=== PATIENT | male | born 1960 | race Caucasian/White ===

== ENCOUNTER 2017-01-29 22:07 | Inpatient (IN) | payer OTHER, MEDICARE ==
[~2017-01-29] VITALS: Ht 182.9 cm; Wt 73.5 kg
[2017-01-29 22:19] VITALS: BP 117/75; PULSE 87; RESP 20; TEMP 98.1; O2SAT 97
--- NOTE | 2017-01-29 22:41 | PD ---
HPI Chief Complaint: Psychiatric Symptoms Time Seen by Provider: 22:33 Travel History International Travel<30 days: No Contact w/Intl Traveler<30days: No Traveled to known affect area: No History of Present Illness HPI 56-year-old male with history of paranoid schizophrenia, here under Carmona act for suicidal ideation. According to the Carmona act the patient was making statements about thinking about how he would commit suicide. He stated he would take pills. He denies any toxic ingestions or self harm today. He has had suicidal ideation in the past, however has never attempted suicide. He denies any physical complaints. [facility] Past Medical History Diminished Hearing: No Schizophrenia: Yes Tetanus Vaccination: Unknown Influenza Vaccination: No Past Surgical History Surgical History: Unable to Obtain Social History Alcohol Use: No Tobacco Use: No Substance Use: No Allergies-Medications (Allergen,Severity, Reaction): Coded Allergies: No Known Allergies (Unverified , 01/29/17) Review of Systems Except as stated in HPI: all other systems reviewed are Neg Physical Exam Narrative GENERAL: Well-developed, well-nourished, awake, sitting comfortably on stretcher , no apparent distress. SKIN: Focused skin assessment warm/dry. No rashes. HEAD: Atraumatic. Normocephalic. EYES: Pupils equal and round. No scleral icterus. No injection or drainage. ENT: Mucous membranes pink and moist. NECK: Trachea midline. No JVD. CARDIOVASCULAR: Regular rate and rhythm. RESPIRATORY: No accessory muscle use. Clear to auscultation. Breath sounds equal bilaterally. GASTROINTESTINAL: Abdomen soft, non-tender, nondistended. MUSCULOSKELETAL: No obvious deformities. No clubbing. No cyanosis. No edema. NEUROLOGICAL: Awake and alert. No obvious cranial nerve deficits. Motor grossly within normal limits. Normal speech. PSYCHIATRIC: Appears paranoid and is slightly agitated. Data Data Last Documented VS Vital Signs Date Time Temp Pulse Resp B/P (MAP) Pulse Ox O2 Delivery O2 Flow Rate FiO2 01/29/17 22:19 98.1 87 20 117/75 (89) 97 Room Air Orders Orders Complete Blood Count With Diff (01/29/17 22:33) Comprehensive Metabolic Panel (01/29/17 22:33) Psych Screen (01/29/17 22:33) Drug Screen, Random Urine (01/29/17 22:33) Alcohol (Ethanol) (01/29/17 22:33) Salicylates (Aspirin) (01/29/17 22:33) Tylenol (Acetaminophen) (01/29/17 22:33) Labs Laboratory Tests Test 01/29/17 22:35 White Blood Count 10.4 TH/MM3 Red Blood Count 5.58 MIL/MM3 Hemoglobin 16.5 GM/DL Hematocrit 48.5 % Mean Corpuscular Volume 86.8 FL Mean Corpuscular Hemoglobin 29.5 PG Mean Corpuscular Hemoglobin Concent 33.9 % Red Cell Distribution Width 13.4 % Platelet Count 452 TH/MM3 Mean Platelet Volume 6.7 FL Neutrophils (%) (Auto) 66.1 % Lymphocytes (%) (Auto) 22.0 % Monocytes (%) (Auto) 9.7 % Eosinophils (%) (Auto) 1.7 % Basophils (%) (Auto) 0.5 % Neutrophils # (Auto) 6.9 TH/MM3 Lymphocytes # (Auto) 2.3 TH/MM3 Monocytes # (Auto) 1.0 TH/MM3 Eosinophils # (Auto) 0.2 TH/MM3 Basophils # (Auto) 0.1 TH/MM3 CBC Comment DIFF FINAL Differential Comment Blood Urea Nitrogen 19 MG/DL Creatinine 1.03 MG/DL Random Glucose 102 MG/DL Total Protein 7.9 GM/DL Albumin 4.2 GM/DL Calcium Level 9.0 MG/DL Alkaline Phosphatase 107 U/L Aspartate Amino Transf (AST/SGOT) 25 U/L Alanine Aminotransferase (ALT/SGPT) 37 U/L Total Bilirubin 0.7 MG/DL Sodium Level 138 MEQ/L Potassium Level 3.7 MEQ/L Chloride Level 105 MEQ/L Carbon Dioxide Level 27.1 MEQ/L Anion Gap 6 MEQ/L Estimat Glomerular Filtration Rate 74 ML/MIN Salicylates Level LESS THAN 1.7 MG/DL Acetaminophen Level LESS THAN 2.0 MCG/ML Ethyl Alcohol Level LESS THAN 3 MG/DL MDM Medical Decision Making Medical Screen Exam Complete: Yes Emergency Medical Condition: Yes Differential Diagnosis Acute psychosis, paranoid schizophrenia, suicidal ideation Narrative Course Vitals and labs reviewed. The patient is medically cleared for psychiatric eval and disposition by them Diagnosis Primary Impression: Paranoid schizophrenia Additional Impression: Suicidal ideation Brady Strong MD Jan 29, 2017 22:41
[2017-01-29 22:50] LABS: AUTOMATED NEUTROPHIL # 6.9 TH/MM3 (1.8-7.7); BASOPHIL # 0.1 TH/MM3 (0-0.2); BASOPHIL % 0.5 % (0.0-2.0); EOSINOPHIL # 0.2 TH/MM3 (0-0.4); EOSINOPHIL % 1.7 % (0.0-4.0); HEMATOCRIT 48.5 % (39.0-51.0); HEMO FLAGS DIFF FINAL; LYMPHOCYTE # 2.3 TH/MM3 (1.0-4.8); MEAN CELL VOLUME 86.8 FL (80.0-100.0); MEAN CORPUSCULAR HEMOGLOBIN 29.5 PG (27.0-34.0); MEAN CORPUSCULAR HGB CONC 33.9 % (32.0-36.0); MONO % 9.7 % (0.0-8.0); NEUT % 66.1 % (16.0-70.0); PLATELET COUNT 452 TH/MM3 (150-450); RED BLOOD COUNT 5.58 MIL/MM3 (4.50-5.90); RED CELL DISTRIBUTION WIDTH 13.4 % (11.6-17.2); WHITE BLOOD COUNT 10.4 TH/MM3 (4.0-11.0)
[2017-01-29 23:17] LABS: ANION GAP 6 MEQ/L (5-15); AST (GOT) 25 U/L (15-37); BICARBONATE 27.1 MEQ/L (21.0-32.0); BLOOD UREA NITROGEN 19 MG/DL (7-18); CHLORIDE 105 MEQ/L (98-107); GLOMERULAR FILTRATION RATE 74 ML/MIN (>89); POTASSIUM 3.7 MEQ/L (3.5-5.1); SODIUM (NA) 138 MEQ/L (136-145)
[2017-01-29 23:19] LABS: ALKALINE PHOSPHATASE 107 U/L (45-117); ALT (GPT) 37 U/L (12-78); TOTAL BILIRUBIN ADULT 0.7 MG/DL (0.2-1.0)
[2017-01-29 23:21] LABS: ACETAMINOPHEN LESS THAN 2.0 MCG/ML (10.0-30.0); ALCOHOL LESS THAN 3 MG/DL (0-5)
[2017-01-30] MEDS ORDERED: HALOPERIDOL 5 MG TAB PO ONE (01:30)
[2017-01-30] MEDS ORDERED: LORazepam 1 MG TAB PO ONE (01:30)
[2017-01-30 06:09] VITALS: BP 140/54; PULSE 113; RESP 18
[2017-01-30 10:44] VITALS: BP 109/66; PULSE 70; RESP 18; O2SAT 100
[2017-01-30] MEDS ORDERED: VIST50CA PO (13:41)
[2017-01-30] MEDS ORDERED: [UNRECOGNIZED DRUG - CODE] IM (13:42)
[2017-01-30] MEDS ORDERED: LORazepam 2 MG/ML VIAL IM PRN (14:00)
[2017-01-30] MEDS ORDERED: MAGNESIUM HYDROXIDE SUSP 30 ML CUP PO PRN (14:00)
[2017-01-30] MEDS: ARIPiprazole 10 MG TAB PO SCH ×2 (14:00→20:19)
[2017-01-30] MEDS ORDERED: ACETAMINOPHEN 325 MG TAB PO PRN (14:00)
[2017-01-30] MEDS ORDERED: ALUMINUM/MAGNESIUM/SIMETH 30 ML CUP PO PRN (14:00)
--- NOTE | 2017-01-30 14:04 | HHI.HP ---
Provisional Diagnosis Admission Date Jan 30, 2017 at 13:47 [place] I. Chronic paranoid schizophrenia Certification of Person's Competence To Provide Express and Informed Consent I have personally examined Chencho Neal , a person being served at [facility] on, Jan 30, 2017 13:52. Express and informed consent means consent voluntarily given in writing, by a competent person, after sufficient explanation and disclosure of the subject matter involved to enable the person to make a knowing and willful decision without any element of force, fraud, deceit, duress, or other form of constraint or coercion. This person is 18 years of age or older, is not now known to be incompetent to consent to treatment with a guardian advocate, and does not have a health care surrogate or proxy currently making medical treatment decisions. I have found this person to be one of the following: [] Competent to provide express and informed consent, as defined above, for voluntary admission to this facility and is competent to provide express and informed consent for treatment. He/she has the consistent capacity to make well reasoned, willful, and knowing decisions concerning his or her medical or mental health treatment. The person fully and consistently understands the purpose of the admission for examination/placement and is fully capable of personally exercising all rights assured [place] [x] Incompetent to provide express and informed consent to voluntary admission, and this is incompetent to provide express and informed consent to treatment. The person must be transferred to involuntary status and a petition for a guardian advocate filed with the Circuit Court. [] Refusing to provide express and informed consent to voluntary admission but is competent to provide express and informed consent for treatment. The person must be discharged or transferred to involuntary status. Form shall be completed within 24 hours of a person's arrival at the receiving facility and filed in the clinical record of each person: 1. Admitted on a voluntary basis 2. Permitted to provide express and informed consent to his/her own treatment 3. Allowed to transfer from involuntary to voluntary status 4. Prior to permitting a person to consent to his or her own treatment after having been previously found incompetent to consent to treatment. History of Present Illness Capacity: Lacks Capacity HPI This is a 56-year-old male sent under Carmona act from [facility]'s office due to suicidality. The immigration lawyer was apparently informed by the patient that the patient wanted to commit suicide and overdosing on pills. The patient further stated he wanted to put things in order before he dies. Apparently the patient also called 911 and indicated he wanted help. Finally, the Carmona act indicates the patient has been diagnosed with schizophrenia at the age of 17. At the present time the patient is a poor historian. He declined to speak with this physician after a few minutes, claiming this physician is an imposter and not a real doctor. He claims not to understand anything about a Carmona act but wants his director emergency to appear now. He is demonstrating obvious thought blocking and he stops intermediate through a sentence due to preoccupation with internal stimuli. He does feel this physician and others who have brought him to the hospital are persecuting him. He demonstrates loose associations. He is unable to have a cogent conversation. Apparently he has been started on ARISTADA a but it is not effective. According to records we have, the patient is not on any oral Abilify. Patient denies the use of alcohol or drugs. His toxicology screen is negative for alcohol and drugs. He is easily upset and agitated because he does not appear to understand what is transpiring. Patient has been admitting to hearing voices which are related to his idea of killing himself. Review of Systems Except as stated in HPI: all other systems reviewed are Neg Past Psych History Psychological trauma history Unknown for psychological trauma but the patient has reportedly been diagnosed with schizophrenia at the age of 17. Violence risk - others (6 mos) Moderate Violence risk - self (6 mos) High Substance Abuse History Drugs/Alcohol past 12 months Denied Past Family Social History Coded Allergies: No Known Allergies (Unverified , 01/30/17) Per MAC Schulte, [facility] [phone] Reported Medications Aripiprazole Lauroxil ER Inj (Aristada ER Inj) 882 Mg/3.2 Ml Susp, 882 MG IM Q28D for Schizophrenia, #1 INJECTION 0 Refills 01/30/17 Hydroxyzine Pamoate (Vistaril) 50 Mg Cap, 1-2 CAPLET PO HS, CAP 0 Refills 01/30/17 Current Medications Medications (Trade) Dose Ordered Sig/Darnell Route Start Time Stop Time Status Last Admin (Ativan) 1 mg Q6H PRN PO 01/30/17 14:00 UNV (Ativan Inj) 1 mg Q6H PRN IM 01/30/17 14:00 UNV (Tylenol) 650 mg Q4H PRN PO 01/30/17 14:00 (Milk Of Magnesia Liq) 30 ml DAILY PRN PO 01/30/17 14:00 UNV (Mag-Al Plus Susp Liq) 30 ml Q6H PRN PO 01/30/17 14:00 (Abilify) 10 mg BID PO 01/30/17 14:00 UNV Family History Unknown Social History Unemployed. [place] to receive Social Security disability. Denies the use of alcohol or drugs. Has minimal family support. Treated by [facility]. Patient's Strengths (min. 2) Resilient and has access to healthcare. Physical Exam GENERAL: SKIN: Warm and dry. HEAD: Normocephalic. EYES: No scleral icterus. No injection or drainage. NECK: Supple, trachea midline. No JVD or lymphadenopathy. CARDIOVASCULAR: Regular rate and rhythm without murmurs, gallops, or rubs. RESPIRATORY: Breath sounds equal bilaterally. No accessory muscle use. GASTROINTESTINAL: Abdomen soft, non-tender, nondistended. MUSCULOSKELETAL: No cyanosis, or edema. BACK: Nontender without obvious deformity. No CVA tenderness. Vital Signs Vital Signs Date Time Temp Pulse Resp B/P (MAP) Pulse Ox O2 Delivery O2 Flow Rate FiO2 01/30/17 10:44 70 18 109/66 (80) 100 Room Air 01/29/17 22:19 98.1 Lab Results Test 01/29/17 22:35 White Blood Count 10.4 TH/MM3 Red Blood Count 5.58 MIL/MM3 Hemoglobin 16.5 GM/DL Hematocrit 48.5 % Mean Corpuscular Volume 86.8 FL Mean Corpuscular Hemoglobin 29.5 PG Mean Corpuscular Hemoglobin Concent 33.9 % Red Cell Distribution Width 13.4 % Platelet Count 452 TH/MM3 Mean Platelet Volume 6.7 FL Neutrophils (%) (Auto) 66.1 % Lymphocytes (%) (Auto) 22.0 % Monocytes (%) (Auto) 9.7 % Eosinophils (%) (Auto) 1.7 % Basophils (%) (Auto) 0.5 % Neutrophils # (Auto) 6.9 TH/MM3 Lymphocytes # (Auto) 2.3 TH/MM3 Monocytes # (Auto) 1.0 TH/MM3 Eosinophils # (Auto) 0.2 TH/MM3 Basophils # (Auto) 0.1 TH/MM3 CBC Comment DIFF FINAL Differential Comment Blood Urea Nitrogen 19 MG/DL Creatinine 1.03 MG/DL Random Glucose 102 MG/DL Total Protein 7.9 GM/DL Albumin 4.2 GM/DL Calcium Level 9.0 MG/DL Alkaline Phosphatase 107 U/L Aspartate Amino Transf (AST/SGOT) 25 U/L Alanine Aminotransferase (ALT/SGPT) 37 U/L Total Bilirubin 0.7 MG/DL Sodium Level 138 MEQ/L Potassium Level 3.7 MEQ/L Chloride Level 105 MEQ/L Carbon Dioxide Level 27.1 MEQ/L Anion Gap 6 MEQ/L Estimat Glomerular Filtration Rate 74 ML/MIN Salicylates Level LESS THAN 1.7 MG/DL Acetaminophen Level LESS THAN 2.0 MCG/ML Ethyl Alcohol Level LESS THAN 3 MG/DL Mental Status Examination Speech: Hesitant Orientation: x3 Memory: Unremarkable Thought Process: Loose Association Thought Content: Bizarre thinking, Paranoid Hallucination Type: Auditory Attention and Concentration: Easily Distracted Suicidal Ideation: Yes Previous Suicide Attempts: Yes Homicidal Ideation: No Previous Homicide Attempts: No Insight: Fair Judgment: Impulsive Affect: Anxious Affect if Inappropriate: Blunt Mood: Anxious Motor Activity: Normal gait Assessment & Plan Problem List: (1) Paranoid schizophrenia ICD Codes: F20.0 - Paranoid schizophrenia Status: Acute Assessment & Plan Estimated LOS: days 56-year-old male with long history of paranoid schizophrenia. Patient is very poor historian with loose associations, agitation, paranoia and delusion that this physician is an impostor. However, the patient also has suicidal ideation which appear to be connected to his auditory hallucinations and he is felt to be at high risk for self-harm. There is also a concern that he has been placed on long-acting injectable medication without oral supplementation. Therefore the patient is being evaluated and will be admitted for further treatment. This physician ordered a CBC and comprehensive metabolic profile. We will determine if there is an infectious process or metabolic process which is causing or contributing to the patient's psychosis. This physician also ordered a thyroid stimulating hormone, vitamin B-12 and vitamin D levels to determine if any deficiencies in these areas is causing or contributing to his psychosis. Likewise, this physician has ordered an EKG to determine the patient 's cardiac conduction status prior to adding or subtracting medications which may alter his cardiac conduction system. Patient was started on oral Abilify as his current prescription of long-acting injectable Abilify is not working. If he responds well to the addition of oral Abilify, he may be changed over to Abilify Maintena. This physician spoke with the patient's nurse, Kathy regarding the patient's recent behavior. Electronic medical record was also reviewed. Case management will be involved to hopeful Poncho gather further information and assist with disposition planning. Lex Pizarro MD Jan 30, 2017 14:04
[2017-01-30 17:11] VITALS: BP 112/75; PULSE 77; RESP 18; TEMP 96.4; O2SAT 99
[2017-01-31 05:38] VITALS: BP 108/69; PULSE 72; RESP 16; TEMP 98.3; O2SAT 98
--- NOTE | 2017-01-31 07:52 | PD.PSY.CON ---
Provisional Diagnosis Admission Date Jan 30, 2017 at 13:47 [place] I. Chronic paranoid schizophrenia History of Present Illness Service Psychiatry Consult Requested By Reason for Consult Second opinion Primary Care Physician Unknown HPI This is a 56-year-old male sent under Carmona act from [facility]'s office due to suicidality. The supervising law enforcement analyst was apparently informed by the patient that the patient wanted to commit suicide and overdosing on pills. The patient further stated he wanted to put things in order before he dies. Apparently the patient also called 911 and indicated he wanted help. Finally, the Carmona act indicates the patient has been diagnosed with schizophrenia at the age of 17.At the present time the patient is a poor historian. He declined to speak with this physician after a few minutes, claiming this physician is an imposter and not a real doctor. He claims not to understand anything about a Carmona act but wants his factory helper to appear now. He is demonstrating obvious thought blocking and he stops correction through a sentence due to preoccupation with internal stimuli. He does feel this physician and others who have brought him to the hospital are persecuting him. He demonstrates loose associations. He is unable to have a cogent conversation. Apparently he has been started on ARISTADA a but it is not effective. According to records we have, the patient is not on any oral Abilify. Patient denies the use of alcohol or drugs. His toxicology screen is negative for alcohol and drugs. He is easily upset and agitated because he does not appear to understand what is transpiring. Patient has been admitting to hearing voices which are related to his idea of killing himself. Patient is seeing in the psychiatric ER,m od 07, for second opinion. The patient is a 55-year-old man, domiciled in [facility], unemployed, with reported psychiatric history of schizophrenia, multiple psychiatric hospitalizations, no previous suicidal attempts, no significant medical history, who was brought to the hospital under Carmona act due to suicidal statement. Kristine at documentation states that patient call to 911 stating that he wanted to commit suicide by overdosing with pills. On somatic evaluation patient says that the reason he called is not because he wanted to commit suicide, but "because I was listening to voices of people in the [place] of my house, I was noting that people in the street were looking at me and trying to kill me with their eyes". On psychiatric evaluation patient is irritable, guarded and suspicious. This persisted and looking to my notes and asking "what are you ride in there". Patient seems to be very disorganized, with frequent loosening of associations and also blocking thought. Patient reports hearing voices in the [place] of the ER at this moment. Voices are derogatory and making comments about him. Patient denies the use of alcohol and illicit drugs. Review of Systems Constitutional: DENIES: Diaphoretic episodes, Fatigue, Fever, Weight gain, Weight loss, Chills, Dizziness, Change in appetite, Night Sweats Endocrine: DENIES: Heat/cold intolerance, Polydipsia, Polyuria, Polyphagia Eyes: DENIES: Blurred vision, Diplopia, Eye inflammation, Eye pain, Vision loss , Photosensitivity, Double Vision Ears, nose, mouth, throat: DENIES: Tinnitus, Hearing loss, Vertigo, Nasal discharge, Oral lesions, Throat pain, Hoarseness, Ear Pain, Running Nose, Epistaxis, Sinus Pain, Toothache, Odynophagia Respiratory: DENIES: Apneas, Cough, Snoring, Wheezing, Hemoptysis, Sputum production, Shortness of breath Cardiovascular: DENIES: Chest pain, Palpitations, Syncope, Dyspnea on Exertion , PND, Lower Extremity Edema, Orthopnea, Claudication Musculoskeletal: DENIES: Joint pain, Muscle aches, Stiffness, Joint Swelling, Back pain, Neck pain Integumentary: DENIES: Abnormal pigmentation, Nail changes, Pruritus, Rash Hematologic/lymphatic: DENIES: Bruising, Lymphadenopathy Immunologic/allergic: DENIES: Eczema, Urticaria Neurologic: DENIES: Abnormal gait, Headache, Localized weakness, Paresthesias, Seizures, Speech Problems, Tremor, Poor Balance Psychiatric: COMPLAINS OF: Hallucinations, Delusions Past Family Social History Coded Allergies: No Known Allergies (Unverified , 01/30/17) Per MAC Schulte, [facility] [phone] Reported Medications Aripiprazole Lauroxil ER Inj (Aristada ER Inj) 882 Mg/3.2 Ml Susp, 882 MG IM Q28D for Schizophrenia, #1 INJECTION 0 Refills 01/30/17 Hydroxyzine Pamoate (Vistaril) 50 Mg Cap, 1-2 CAPLET PO HS, CAP 0 Refills 01/30/17 Current Medications Medications (Trade) Dose Ordered Sig/Darnell Route Start Time Stop Time Status Last Admin (Ativan) 1 mg Q6H PRN PO 01/30/17 14:00 (Ativan Inj) 1 mg Q6H PRN IM 01/30/17 14:00 (Tylenol) 650 mg Q4H PRN PO 01/30/17 14:00 (Milk Of Magnesia Liq) 30 ml DAILY PRN PO 01/30/17 14:00 (Mag-Al Plus Susp Liq) 30 ml Q6H PRN PO 01/30/17 14:00 (Abilify) 10 mg BID PO 01/30/17 14:00 01/30/17 20:19 Family History Patient was born and raised in [place], he lives alone in [place], is unemployed, highest level of education is college Patient's Strengths (min. 2) Resilient and has access to healthcare. Physical Exam Vital Signs Vital Signs Date Time Temp Pulse Resp B/P (MAP) Pulse Ox O2 Delivery O2 Flow Rate FiO2 01/31/17 05:38 98.3 72 16 108/69 (82) 98 01/30/17 10:44 Room Air Mental Status Examination Appearance man, age appearing, [facility], irritable, suspicious, superficially cooperative Speech: Hesitant Orientation: x3 Memory: Unremarkable Thought Process: Loose Association Thought Content: Bizarre thinking, Paranoid Hallucination Type: Auditory Attention and Concentration: Easily Distracted Suicidal Ideation: Yes Previous Suicide Attempts: Yes Homicidal Ideation: No Previous Homicide Attempts: No Insight: Fair Judgment: Impulsive Affect: Anxious Affect if Inappropriate: Blunt Mood: Anxious Motor Activity: Normal gait Assessment & Plan Problem List: (1) Paranoid schizophrenia ICD Codes: F20.0 - Paranoid schizophrenia Status: Acute Assessment & Plan: I have seen and examined this patient, reviewed the documentation, I agree and concur with Dr. Pizarro's assessment and plan. Assessment & Plan Estimated LOS: Bruno Santos MD Jan 31, 2017 07:52
[2017-01-31] MEDS: ARIPiprazole 10 MG TAB PO SCH ×3 (07:58→20:36)
[2017-01-31 08:44] LABS: AUTOMATED NEUTROPHIL # 4.7 TH/MM3 (1.8-7.7); BASOPHIL % 0.4 % (0.0-2.0); EOSINOPHIL # 0.2 TH/MM3 (0-0.4); EOSINOPHIL % 2.8 % (0.0-4.0); HEMATOCRIT 47.1 % (39.0-51.0); HEMO FLAGS DIFF FINAL; LYMPHOCYTE # 1.8 TH/MM3 (1.0-4.8); MEAN CELL VOLUME 88.1 FL (80.0-100.0); MEAN CORPUSCULAR HEMOGLOBIN 29.9 PG (27.0-34.0); MEAN CORPUSCULAR HGB CONC 33.9 % (32.0-36.0); MONO % 10.6 % (0.0-8.0); NEUT % 62.2 % (16.0-70.0); PLATELET COUNT 396 TH/MM3 (150-450); RED BLOOD COUNT 5.34 MIL/MM3 (4.50-5.90); RED CELL DISTRIBUTION WIDTH 13.2 % (11.6-17.2); WHITE BLOOD COUNT 7.5 TH/MM3 (4.0-11.0)
[2017-01-31 09:44] LABS: ALKALINE PHOSPHATASE 104 U/L (45-117); ALT (GPT) 33 U/L (12-78); ANION GAP 5 MEQ/L (5-15); AST (GOT) 34 U/L (15-37); BICARBONATE 27.4 MEQ/L (21.0-32.0); BLOOD UREA NITROGEN 17 MG/DL (7-18); CHLORIDE 105 MEQ/L (98-107); GLOMERULAR FILTRATION RATE 74 ML/MIN (>89); HDL CHOLESTEROL 41.2 MG/DL (40.0-60.0); LDL CHOLESTEROL 114 MG/DL (0-99); POTASSIUM 4.6 MEQ/L (3.5-5.1); SODIUM (NA) 137 MEQ/L (136-145); TOTAL BILIRUBIN ADULT 0.9 MG/DL (0.2-1.0)
[2017-01-31 15:41] VITALS: BP 123/59; PULSE 78; RESP 18; TEMP 98; O2SAT 96
[2017-01-31] MEDS ORDERED: OLANZapine IM 10 MG VIAL IM PRN (16:45)
[2017-01-31 22:36] LABS: HEMOGLOBIN A1a 0.9 %; HEMOGLOBIN A1b 1.7 %; HEMOGLOBIN LA1C 1.7 %; HEMOGLOBIN P3 3.7 %
[2017-02-01] MEDS: LORazepam 1 MG TAB PO PRN (01:49)
[2017-02-01 05:48] VITALS: BP 111/61; PULSE 77; RESP 18; TEMP 97.6; O2SAT 96
[2017-02-01] MEDS: ARIPiprazole 30 MG TAB PO SCH (08:39)
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
[2017-02-01] MEDS ORDERED: ASPIRIN 325 MG TAB PO ONE (15:15)
--- NOTE | 2017-02-01 16:59 | EKG ---
Date Performed: 01/31/2017 Time Performed: 14:13:53 PTAGE: 56 years EKG: Sinus rhythm NORMAL ECG NO PREVIOUS TRACING DOCTOR: Jessenia Benton Interpretating Date/Time 02/01/2017 16:58:26
[2017-02-01 17:51] VITALS: BP 137/97; PULSE 86; RESP 18; TEMP 97.1; O2SAT 95
[2017-02-02 06:13] VITALS: BP 110/64; PULSE 80; RESP 16; TEMP 98.4; O2SAT 96
[2017-02-02] MEDS: ARIPiprazole 30 MG TAB PO SCH (08:11)
--- NOTE | 2017-02-02 11:19 | HHI.PYPN ---
Subjective Remarks Pt seen and discussed with staff. He remains paranoid with prominent delusions. He requires significant coaching from RN to comply with medications. No side effects. He states that he has been staying in his room because he is "not sure where I belong". Hygiene is inadequate. No SI/HI Objective Alert: Yes [place]: Person, Place, Date Mood: Depressed Affect: Restricted Memory Intact: Immediate, Recent Hallucinations: Other (internally stimulated) Delusions: Yes Delusion Type: Paranoid Suicidal: Ideation (no SI) Homicidal: Ideation (no HI) Insight/Judgment poor Vitals/IOs Vital Signs Date Time Temp Pulse Resp B/P (MAP) Pulse Ox O2 Delivery O2 Flow Rate FiO2 02/02/17 06:13 98.4 80 16 110/64 (79) 96 01/30/17 10:44 Room Air Assessment & Plan Problem List: (1) Paranoid schizophrenia ICD Codes: F20.0 - Paranoid schizophrenia Status: Acute Assessment & Plan Continue current tx plan. Estimated LOS: days Justification for Cont. Inpt. impairments in reality testing Laverne Matson MD Feb 02, 2017 11:19
[2017-02-02] MEDS ORDERED: ASPIRIN 325 MG TAB PO ONE (13:30)
[2017-02-02 18:00] VITALS: BP 128/65; PULSE 73; RESP 19; TEMP 98.1; O2SAT 96
[2017-02-03] MEDS: LORazepam 1 MG TAB PO PRN (00:55)
[2017-02-03 05:45] VITALS: BP 111/63; PULSE 75; RESP 16; TEMP 97.5; O2SAT 100
[2017-02-03] MEDS: ARIPiprazole 30 MG TAB PO SCH (08:05)
--- NOTE | 2017-02-03 12:45 | HHI.PYPN ---
Subjective Remarks Pt seen and discussed with staff. He reports that he is hearing voices in his room and in the dayroom that are listening to him. "I guess there must be speakers." No command. No behavioral problems on unit. Compliant with medications and denies side effects. Objective Alert: Yes [place]: Person, Place, Date Mood: Calm Affect: Restricted Memory Intact: Immediate, Recent Hallucinations: Auditory Delusions: Yes Delusion Type: Paranoid Suicidal: Ideation (no SI) Homicidal: Ideation (no HI) Insight/Judgment poor Vitals/IOs Vital Signs Date Time Temp Pulse Resp B/P (MAP) Pulse Ox O2 Delivery O2 Flow Rate FiO2 02/03/17 05:45 97.5 75 16 111/63 (79) 100 01/30/17 10:44 Room Air Assessment & Plan Problem List: (1) Paranoid schizophrenia ICD Codes: F20.0 - Paranoid schizophrenia Status: Acute Assessment & Plan Continue current tx plan. Estimated LOS: days Justification for Cont. Inpt. impairments in reality testing Laverne Matson MD Feb 03, 2017 12:45
[2017-02-03 17:52] VITALS: BP 116/75; PULSE 67; RESP 16; TEMP 98.3; O2SAT 98
[2017-02-04 05:59] VITALS: BP 98/55; PULSE 63; RESP 16; TEMP 98.1; O2SAT 97
[2017-02-04] MEDS: ARIPiprazole 30 MG TAB PO SCH (08:57)
--- NOTE | 2017-02-04 14:04 | HHI.PYPN ---
Subjective Remarks Patient is seen today for psychiatric reevaluation, patient is found in the recreational area of the unit sitting watching TV, patient seems to be more engageable in a conversation, calmer and more cooperative. Patient says that he wants to go home, he says that he doesn't want to continue in the hospital, he doesn't have a mental illness that require hospitalizations. He says that he doesn't trust me and he doesn't trust the nurses. He reports okay mood, denies suicidal and homicidal ideation, denies visual and auditory hallucinations. As per nurse in charge, patient has been guarded, paranoid, he was witnessed talking to himself internally stimulated and multiple occasions during the weekend. Review of Systems Other No somatic complaints Objective Alert: Yes [place]: Person, Place, Date Mood: Angry, Oppositional Affect: Flat Memory Intact: Immediate, Recent Hallucinations: Auditory Delusions: Yes Delusion Type: Paranoid Suicidal: Ideation (no SI) Homicidal: Ideation (no HI) Insight/Judgment Poor Vitals/IOs Vital Signs Date Time Temp Pulse Resp B/P (MAP) Pulse Ox O2 Delivery O2 Flow Rate FiO2 02/04/17 05:59 98.1 63 16 98/55 (69) 97 Assessment & Plan Problem List: (1) Paranoid schizophrenia ICD Codes: F20.0 - Paranoid schizophrenia Status: Acute Assessment & Plan: Patient continues to be acutely psychotic, with a very modest response to current psychotropic regimen. Will add Seroquel 50 mg at bedtime to help with psychosis. Assessment & Plan Estimated LOS: days Justification for Cont. Inpt. Patient is to continue psychiatric hospitalization for stabilization and safety. Bruno Boone MD Feb 04, 2017 14:04
[2017-02-04 16:44] VITALS: BP 108/68; PULSE 75; RESP 18; TEMP 98.1; O2SAT 98
[2017-02-05 06:07] VITALS: BP 98/54; PULSE 71; RESP 18; TEMP 97.7; O2SAT 93
[2017-02-05] MEDS: ARIPiprazole 30 MG TAB PO SCH (08:59)
--- NOTE | 2017-02-05 16:31 | HHI.PYPN ---
Subjective Remarks Patient was seen today for psychiatric reevaluation, patient is found sitting down in the recreational area of the unit, patient is more cooperative, engageable in a conversation, still looks suspicious, and makes very paranoid statements, but definitely he seems to be more logical and coherent. Patient says that he is motivated to take his medications, to get better and be discharged back home. He denies suicidal and homicidal ideation, he denies visual and auditory hallucination at this moment. However, in charge reports that patient last night was internally stimulated, pacing in the [place], talking to himself. Review of Systems Other No somatic complaints Objective Alert: Yes [place]: Person, Place, Date Mood: Angry, Oppositional Affect: Flat Memory Intact: Immediate, Recent Hallucinations: Auditory Delusions: Yes Delusion Type: Paranoid Suicidal: Ideation (no SI) Homicidal: Ideation (no HI) Insight/Judgment Poor Vitals/IOs Vital Signs Date Time Temp Pulse Resp B/P (MAP) Pulse Ox O2 Delivery O2 Flow Rate FiO2 02/05/17 06:07 97.7 71 18 98/54 (69) 93 Assessment & Plan Problem List: (1) Paranoid schizophrenia ICD Codes: F20.0 - Paranoid schizophrenia Status: Acute Assessment & Plan: Patient shows a positive response to psychotropic regimen. We'll continue current dose today. Most probably will order a dose of Depot medication this week. However, collateral information from his psychiatrist is crucial. Assessment & Plan Estimated LOS: days Justification for Cont. Inpt. Patient is acutely psychotic, needs to continue psychiatric hospitalization for stabilization. Bruno Boone MD Feb 05, 2017 16:31
[2017-02-05 16:59] VITALS: BP 106/62; PULSE 73; RESP 18; TEMP 98; O2SAT 100
[2017-02-06 06:00] VITALS: BP 122/75; PULSE 81; RESP 18; TEMP 97.7; O2SAT 96
[2017-02-06] MEDS: ARIPiprazole 30 MG TAB PO SCH ×2 (09:00→12:00)
--- NOTE | 2017-02-06 16:00 | HHI.PYPN ---
Subjective Remarks Patient was seen today for psychiatric reevaluation, discussed in treatment team. She continues to be very paranoid, to the he refused his medications stating that it might be poison, he also says that he doesn't understand where he has to take more medication if he took medications last November. Patient seems to be linear, who directed and organized, but very suspicious and guarded. He denies suicidal and homicidal ideation, he denies visual and auditory hallucinations. Patient is fully oriented 3. Patient has been compliant with medications, but needs persistent reassurance in order to take the medication. Review of Systems Other No somatic complaints Objective Alert: Yes [place]: Person, Place, Date Mood: Angry, Oppositional Affect: Flat Memory Intact: Immediate, Recent Hallucinations: Auditory Delusions: Yes Delusion Type: Paranoid Suicidal: Ideation (no SI) Homicidal: Ideation (no HI) Insight/Judgment Poor Vitals/IOs Vital Signs Date Time Temp Pulse Resp B/P (MAP) Pulse Ox O2 Delivery O2 Flow Rate FiO2 02/06/17 06:00 97.7 81 18 122/75 (91) 96 Assessment & Plan Problem List: (1) Paranoid schizophrenia ICD Codes: F20.0 - Paranoid schizophrenia Status: Acute Assessment & Plan: Will continue current psychotropic regimen. Assessment & Plan Estimated LOS: days Justification for Cont. Inpt. She is acutely psychotic and needs to continue his psychiatric hospitalization. Bruno Boone MD Feb 06, 2017 16:00
--- NOTE | 2017-02-06 16:10 | PD.TTN ---
Patient Problems 1. Discharge planning 2. Medication compliance 3. Knowledge deficit 4. Lack of coping skills Progress Toward Goals Provider Present: Dr. Jere Boone Provider Input: 's treatment team met to discuss treatment plan, medication, and discharge. Patient continues to be non compliant with mediation. Patient will remain on unit until stablized. Psychiatric Counselors Present: Shauna Bustillos [facility] Psych Therapist Input: Patient presented anxious, restless, agitated, affect blunted. Patient's speech is clear, organized, and pressured. Patient made good eye contact. Patient is non compliant with medication. Patient reports eating and sleeping well. Patient presents paranoid, seclusive and denies auditory or visual hallucinations. Patient is alert to person, place, but has poor insight into his situation. Patient is exit seeking and wants to return home. Group Spec/RT/OT/REECE Present: CHEVY Mccarthy Group Spec/RT/OT/REECE Input: Comes to group, pleasant, cooperative, Shauna Bustillos [facility] Feb 06, 2017 16:10
[2017-02-06 17:42] VITALS: BP 109/68; PULSE 65; RESP 18; TEMP 97.9; O2SAT 97
[2017-02-07 06:03] VITALS: BP 91/53; PULSE 86; RESP 16; TEMP 98.3; O2SAT 95
[2017-02-07] MEDS: ARIPiprazole 30 MG TAB PO SCH (07:42)
[2017-02-07] MEDS ORDERED: ABIL30TA2 PO (11:25)
[2017-02-07] MEDS ORDERED: VIST50CA PO (11:25)
--- NOTE | 2017-02-07 11:31 | HHI.DS ---
Psychiatry Discharge Summary Inpatient Psychiatric care?: Yes Advance Directive: No Reason Not Provided: Due to Patient Condition Mental Health AdvanceDirective: No Health Care Proxy: No Admission Admission Date Jan 30, 2017 at 13:47 Admission Diagnosis: (1) Paranoid schizophrenia ICD Code: F20.0 - Paranoid schizophrenia Brief History This is a 56-year-old male sent under Carmona act from [facility]'s office due to suicidality. The lawnmower repair mechanic was apparently informed by the patient that the patient wanted to commit suicide and overdosing on pills. The patient further stated he wanted to put things in order before he dies. Apparently the patient also called 911 and indicated he wanted help. Finally, the Carmona act indicates the patient has been diagnosed with schizophrenia at the age of 17.At the present time the patient is a poor historian. He declined to speak with this physician after a few minutes, claiming this physician is an imposter and not a real doctor. He claims not to understand anything about a Carmona act but wants his direct support worker to appear now. He is demonstrating obvious thought blocking and he stops half-way through a sentence due to preoccupation with internal stimuli. He does feel this physician and others who have brought him to the hospital are persecuting him. He demonstrates loose associations. He is unable to have a cogent conversation. Apparently he has been started on ARISTADA a but it is not effective. According to records we have, the patient is not on any oral Abilify. Patient denies the use of alcohol or drugs. His toxicology screen is negative for alcohol and drugs. He is easily upset and agitated because he does not appear to understand what is transpiring. Patient has been admitting to hearing voices which are related to his idea of killing himself. Patient is seeing in the psychiatric ER,m [facility], for second opinion. The patient is a 55-year-old man, domiciled in [place] alone, unemployed, with reported psychiatric history of schizophrenia, multiple psychiatric hospitalizations, no previous suicidal attempts, no significant medical history, who was brought to the hospital under Carmona act due to suicidal statement. Kristine at documentation states that patient call to 911 stating that he wanted to commit suicide by overdosing with pills. On somatic evaluation patient says that the reason he called is not because he wanted to commit suicide, but "because I was listening to voices of people in the [place] of my house, I was noting that people in the street were looking at me and trying to kill me with their eyes". On psychiatric evaluation patient is irritable, guarded and suspicious. This persisted and looking to my notes and asking "what are you ride in there". Patient seems to be very disorganized, with frequent loosening of associations and also blocking thought. Patient reports hearing voices in the [place] of the ER at this moment. Voices are derogatory and making comments about him. Patient denies the use of alcohol and illicit drugs. Tobacco Use In Past 30 Days: No Tobacco Past 30 Days Alcohol Use: Never Hospital Course Patient was admitted in the 27th under unit with increased paranoia, disorganized behavior, internal preoccupation, and poor contact with reality. appropriate safety measures were taken. Psychosocial psychiatric assessment were performed. She was started in psychotropics, in this case Abilify 5 mg daily that was titrated up until 30 mg daily. He also was to starting individual and group therapies. Patient showed a very good response to psychotropic regimen and psychotherapy. During this hospitalization at moment patient was agitated, never aggressive, and refusing medications, but with redirection he usually accepted and finally took his medications. We contacted outpatient psychiatrist in order to coordinate a better outpatient care, patient will be medicated with Abilify manteina 400 mg today. At the moment of the discharge patient is is still a little bit paranoid, but as per Carmona act court she was deemed not appropriate her continuance of involuntary psychiatric admission. Results Blood Pressure 91 / 53 Vital Signs Date Time Temp Pulse Resp B/P (MAP) Pulse Ox O2 Delivery O2 Flow Rate FiO2 02/07/17 06:03 98.3 86 16 91/53 (66) 95 Laboratory Results Test 01/31/17 07:56 Cholesterol Level 173 MG/DL (120-200) HDL Cholesterol 41.2 MG/DL (40.0-60.0) Hemoglobin A1c 5.5 % (4.3-6.0) LDL Cholesterol 114 MG/DL (0-99) Triglycerides Level 88 MG/DL (42-150) Summary of Procedures None Pending results at discharge: No Medications # of Antipsychotic meds at D/C: 1 Approp Antipsych med options 1 - Minimum of three failed multiple trials of monotherapy. 2 - Documented plan to taper to monotherapy due to previous use of multiple meds OR cross-taper in progress at D/C. 3 - Documentation of augmentation of Clozapine. 4 - Justification other than those listed in allowable values 1-3, document here : Discharge Discharge Date: Feb 07, 2017 Discharge Diagnosis: (1) Paranoid schizophrenia ICD Code: F20.0 - Paranoid schizophrenia Status: Acute Mental Status Exam at Disch man, age appearing, good hygiene, is calm, cooperative, a little bit irritable. His speech is appropriate. Mood is okay, is irritable. Thought process is logical, coherent and relevant. Thought content is devoid of suicidal and homicidal ideation, visual and auditory hallucinations. A little bit of paranoia is his still present, but no delusions. Insight, impulse control and judgment are fair. Cognition is intact. Pt Condition on Discharge: Stable Discharge Disposition: Discharge Home Discharge Instructions Diet Instructions: Heart Healthy Diet Activities you can perform: Weight Bearing as Manuel Scheduled Appointment: Maikol Sims Discharge Time > 30 minutes Discharge/Advance Care Plan Health Problems: (1) Paranoid schizophrenia Goals to promote your health * To prevent worsening of your condition and complications * To maintain your health at the optimal level Directions to meet your goals Take your medications as prescribed Follow your dietary instruction Follow activity as directed Keep your appointments as scheduled Take your immunizations and boosters as scheduled If your symptoms worsen call your PCP, if no PCP go to Urgent Care Center or Emergency Room For 03/12 questions related to your inpatient stay or results of tests pending at discharge, please contact Dr. Bruno Boone at Smoking is Dangerous to Your Health. Avoid second hand smoking Bruno Boone MD Feb 07, 2017 11:31
[2017-02-07] MEDS ORDERED: ABILIFY MAINTENA 400 MG IM ONE (13:00)
== END 2017-02-07 14:10 | disposition home or self-care (01) | DRG 885 ==
LOC: NEPD 22:07 → NEDA 01-30 13:47 → H270 01-30 16:33
PROVIDERS: ADMIT Psychiatry & Neurology Psychiatry; ATTEND Psychiatry & Neurology Psychiatry
DX: F20.0 Paranoid schizophrenia (principal); R45.851 Suicidal ideations
CPT/HCPCS: 80053; 80061; 80307; 82306; 82607; 83036; 84443; 85025; 93005